=== PATIENT | male | born 1995 | race Caucasian/White ===

== ENCOUNTER 2024-05-09 15:55 | Emergency (ER) | payer OTHER, SELFPAY ==
[2024-05-09 16:28] VITALS: BP 121/63; PULSE 70; RESP 18; TEMP 37.1; O2SAT 99
--- NOTE | 2024-05-09 16:40 | ED.URI ---
HPI - URI/Sore Throat General Chief Complaint: Upper Respiratory Infection Stated Complaint: Sinus Infection Time Seen by Provider: 05/09/24 16:35 Source: patient, RN notes reviewed and old records reviewed Mode of arrival: ambulatory Limitations: no limitations History of Present Illness HPI Narrative: patient presents with 2 day history of runny nose, sore throat. He reports that he does get seasonal allergies, these feel about the same. He also reports though that his co-worker tested positive for COVID. Patient does not have any fever, chills, sweats. He is in no distress, including respiratory distress. He has not been taking anything for his symptoms. Voices no other concerns or complaints today Related Data Home Medications Medication Instructions Recorded Confirmed No Home Medications 05/09/24 05/09/24 Allergies Allergy/AdvReac Type Severity Reaction Status Date / Time fluoxetine AdvReac Unknown difficulty Verified 05/09/24 16:46 achieving organism Review of Systems Review of Systems: All systems reviewed & are unremarkable except as noted in HPI and below Constitutional: Constitutional: Reports no additional constitutional complaints ENT: Reports system reviewed and no additional complaints, except as documented, Reports as per HPI, Reports nasal discharge and Reports sore throat Cardiovascular: Cardiovascular: Reports no additional cardiovascular complaints Respiratory: Respiratory: Reports as per HPI, Reports no additional respiratory complaints and Reports cough Gastrointestinal: Gastrointestinal: Reports no additional gastrointestinal complaints [facility] Past Medical History Medical History Anxiety GERD (gastroesophageal reflux disease) Family History Family History Grandparent Hypertension Diabetes mellitus Father Family history of mental disorder Depression Mother Family history of mental disorder Depression Other Family history of multiple sclerosis Social History Social History Smoking status: Current every day smoker Alcohol intake: current Comments At the time of my signature, I reviewed and agree with the nursing past medical, surgical, social, and family history. There is no relevant family history pertinent to the patient complaint. Exam Const: General: cooperative, no acute distress, alert and awake Orientation/consciousness: oriented to person, oriented to place and oriented to time HENMT: Head: normal to inspection Ears: TM's normal bilaterally Face/Nose/Sinus: Nasal discharge present clear Mouth: Yes moist mucous membranes Throat: posterior oropharynx abnormal erythema Resp: Effort & Inspection: normal respiratory effort and able to speak in complete sentences Auscultation: clear to auscultation bilaterally, no crackles, no rales, no rhonchi and no wheezes Cardio: Palpation: normal PMI Rate: regular rate Rhythm: regular rhythm Heart sounds: S1 normal heart sound present and S2 normal heart sound present Neuro: General: oriented to person, oriented to place and oriented to time Cranial nerves: Yes CN's II-XII intact bilaterally Psych: Appearance: grossly normal Thought process: Normal thought process present Insight: Good insight present (Psych) Judgement: Good judgement present (Psych) Course Course Level of Care: Express Care Visit Vital Signs Vital signs: Vital Signs Temperature 98.8 F 05/09/24 16:28 Pulse Rate 70 05/09/24 16:28 Respiratory Rate 18 05/09/24 16:28 Blood Pressure 121/63 05/09/24 16:28 Pulse Oximetry 99 05/09/24 16:28 Oxygen Delivery Room Air 05/09/24 16:28 Temperature 98.8 F 05/09/24 16:28 Pulse Rate 70 05/09/24 16:28 Respiratory Rate 18 05/09/24 16:28 Blood Pressure 121/63 05/09/24 16:28 Pulse Oximetry 99
[2024-05-09 17:03] LABS: EDCOVIDSCREEN Positive (Negative)
== END 2024-05-09 17:09 | disposition home or self-care (01) ==
PROVIDERS: Emergency Provider Nurse Practitioner Family
DX: U07.1 COVID-19 (principal); K21.9 Gastro-esophageal reflux disease without esophagitis
CPT/HCPCS: 87426; 99212; G0463

== ENCOUNTER 2025-01-19 19:12 | Emergency (ER) | payer OTHER, SELFPAY ==
--- NOTE | ~2025-01-19 | CT_ITS ---
Clinical Indication: Pleural effusion, abdominal pain CT Scan of the Chest, Abdomen, and Pelvis with Contrast: Technique: Contiguous sections were acquired throughout the chest, abdomen, and pelvis after intraven ous administration of 100 cc of Omnipaque 350. Dose reduction technique was used on this scan by hansel saldana automated exposure control and iterative reconstruction technique. The dose-length product (DL P) was 371.88 mGy-cm. Findings: There is no evidence of any significant mediastinal, hilar or axillary lymphadenopathy. The mediastin al soft tissues appear normal. No aortic aneurysm or dissection. No central pulmonary embolus. There is no evidence of pleural or pericardial effusion. The lungs are clear. No pulmonary nodules or infiltrates are noted. The liver, spleen, pancreas, gallbladder, adrenals and kidneys are within normal limits. No evidence of aortic aneurysm. No lymphadenopathy. No bowel obstruction or bowel wall thickening. There is no evidence to suggest acute appendicitis. Urinary bladder is unremarkable. No pelvic mass seen. No ascites. Impression: No significant abnormalities seen. Reviewed, dictated and finalized at [facility]. Impression: No significant abnormalities seen.
--- NOTE | ~2025-01-19 | XR_ITS ---
EXAMINATION: XR chest 2V Exam Date/Time: 01/19/2025 20:04 CDT HISTORY: paliptations Comparison: 12/07/2015; 01/28/2013. RESULT: Lines, tubes, and devices: None. Lungs and pleura: Blunting of the left posterior costophrenic angle, with minimal adjacent subsegmen jimmy airspace disease. This may be secondary to small pleural effusion or chronic pleural blunting. Cardiomediastinal silhouette: Stable. Other: No acute osseous or upper abdominal finding. IMPRESSION: Possible trace left pleural effusion with adjacent subsegmental airspace disease. Reviewed, dictated and finalized at location [facility]. IMPRESSION: Possible trace left pleural effusion with adjacent subsegmental airspace disejan e.
--- NOTE | 2025-01-19 19:15 | ECG_ITS ---
Test Date: 2025-01-19 19:25:46 Measurements Intervals [place] Rate: 82 P: 61 AL: 142 QRS: 63 QRSD: 95 T: 53 QT: 357 QTc: 418 Interpretive Statements SINUS RHYTHM BASELINE ARTIFACT- I, II, III, AVR, AVL, AVF, V5 NORMAL ECG No previous ECG available for comparison Electronically Signed On 01-19-2025 19:27:57 CDT by José Cabrera D.O.
--- OUTSIDE RECORDS SUMMARY | 2025-01-19 19:15 | XMS_ITS | Continuity of Care Document ---
Author Organization [facility] Address [id number] [place] [phone] Phone Care Team Providers Care Brazing Machine Feeder Name Role Phone Davin Godinez MD Unavailable Unavailable Advance Directives Directive Yes / No Effective Date File Name No Information Encounters Encounter Description Practice Location Reason(s) For Visit Diagnoses Date Provider Providers Copied on Encounter [facility], [id number], [place], [place], [id number], [place] tel:[phone] [facility] No Information Herbert Jin. [address], [id number], [place]. tel:[phone] Family History Family Member Type Diagnosis Age At Onset No Information Payers Payer name Insurance type Covered republican ID Authoriza tion(s) No Information Social History Type Description Quantity Date Captured Comments Sex Male Smoking Status No Information Chief Complaint And Reason For Visit No Information Reason For Referral Reason For Referral No Information History Of Present Illness Encounter Date Complaint History Of Prese nt Illness No Information Functional Status Date Functional Assessmen t No Information Instructions Date Instruction Additional Infor mation No Information Assessments Type Assessment Date No Information Patient Care Teams Name Effective Dates (start - stop) Status Members No Information
[2025-01-19 19:20] VITALS: BP 137/92; PULSE 85; RESP 17; TEMP 36.6; O2SAT 100
[2025-01-19 19:36] LABS: Basophils Absolute Auto 0.1 K/mm3 (0.0-0.1); Basophils Percent Auto 0.7 % (0.2-1.2); Eosinophils Absolute Auto 0.4 K/mm3 (0-0.3); Eosinophils Percent Auto 5.1 % (0-4.4); Hematocrit 50.7 % (42.0-52.0); Hemoglobin 17.1 g/dL (14.0-18.0); Immature Granulocyte Absolute 0.01 K/mm3 (0.00-0.031); Immature Granulocyte Percent A 0.1 % (0-0.5); Lymphocytes Absolute Auto 2.25 K/mm3 (0.9-3.2); Lymphocytes Percent Auto 32.7 % (18.3-44.2); Mean Corpuscular HGB Conc 33.7 g/dl (32-36); Mean Corpuscular Hemoglobin 29.9 pg (26-34); Mean Corpuscular Volume 88.6 fl (80-100); Mean Platelet Volume 9.8 fl (7.4-10.4); Monocytes Absolute Auto 0.5 K/mm3 (0.1-0.6); Monocytes Percent Auto 7.8 % (2.6-8.5); Neutrophils Absolute Auto 3.7 K/mm3 (1.3-6.7); Neutrophils Percent Auto 53.6 % (45.5-73.1); Platelet Count Result 182 k/mm3 (150-375); Red Blood Count 5.72 M/mm3 (4.6-6.20); Red Cell Distribution Width 12.3 % (11.5-14.5); White Blood Count 6.9 K/mm3 (4.5-10.0)
[2025-01-19 19:48] LABS: INR 1.2; Prothrombin Time 14.6 Seconds (11.1-14.7)
[2025-01-19 19:49] LABS: Alanine Aminotransferase 30 U/L (6-50); Albumin Level 5.2 g/dL (3.5-5.1); Alkaline Phosphatase 70 U/L (38-126); Anion Gap 12 mmol/L (4-12); Aspartate Amino Transferase 32 U/L (17-59); Bilirubin,Total 0.8 mg/dL (0.2-1.3); Blood Urea Nitrogen 24 mg/dL (9-20); Calcium 9.8 mg/dL (8.4-10.2); Carbon Dioxide 23 mmol/L (22-30); Chloride 107 mmol/L (98-107); Estimated CRCL calculation 91 ml/min; Estimated Glomerular Filt Rate > 60; Glucose 98 mg/dL (65-110); Lipase 80 U/L (23-300); Partial Thromboplastin Time 27.5 Seconds (22.3-36.8); Potassium 3.8 mmol/L (3.4-5.0); Sodium 142 mmol/L (137-145)
[2025-01-19 20:00] LABS: Troponin I < 0.012 ng/mL (0.000-0.034)
--- OUTSIDE RECORDS SUMMARY | 2025-01-19 23:07 | XMS_ITS | Continuity of Care Document ---
Author Organization [facility] Address [id number] [place] [phone] Phone Care Team Providers Care Drywall Stripper Name Role Phone Davin Godinez MD Unavailable Unavailable Advance Directives Directive Yes / No Effective Date File Name No Information Encounters Encounter Description Practice Location Reason(s) For Visit Diagnoses Date Provider Providers Copied on Encounter [facility], [address], [place], [place], [id number], [place] tel:[phone] [facility] No Information Herbert Jin. [address], [id number], [place]. tel:[phone] Family History Family Member Type Diagnosis Age At Onset No Information Payers Payer name Insurance type Covered alliance party ID Authoriza tion(s) No Information Social History [...]
--- NOTE | 2025-01-19 23:08 | ECG_ITS ---
Test Date: 2025-01-19 23:54:14 Measurements Intervals [place] Rate: 61 P: 45 ND: 179 QRS: 42 QRSD: 88 T: 52 QT: 396 QTc: 400 Interpretive Statements SINUS RHYTHM NORMAL ECG Compared to ECG 01/19/2025 19:25:46 No significant changes Electronically Signed On 01-20-2025 06:11:30 CDT by José Cabrera D.O.
[2025-01-19 23:32] LABS: Troponin I < 0.012 ng/mL (0.000-0.034)
--- NOTE | 2025-01-20 00:15 | ED.ARRPALP ---
HPI - Arrhythmia/Palpitations General Chief Complaint: Arrhythmia/Palpitations Stated Complaint: Having palpitations x 3 days/SHOB/Diarrhea Time Seen by Provider: 01/19/25 22:51 Source: patient Mode of arrival: ambulatory Limitations: no limitations History of Present Illness HPI narrative: Patient presents with intermittent palpitations x3 days. He will have the sensation that his heart is pounding hard, occasionally feels like it stops for a beat. States that he can even see it pounding in his chest when he looks down. Associated with shortness of breath and also diarrhea x3 days, believes 6-8 nonbloody episodes in 24 hours. Causing low abdominal pain. History of having a colonoscopy and being diagnosed with IBS but that had been better after exercise and diet changes. No cardiac history. Right sided chest pain yesterday before bed, 4 quick episodes. History of marijuana use. No nausea/vomiting. No fevers but had cold sweats. YOSELIN was before coming to the ED, approxiamtely 4 pm. Not taking any medications for diarrhea. Increased urinary frquency but no urgency, hematuria, dysuria. Recently had a rash on his right knee and right elbow, resolved. No penile discharge. No leg swelling. Dry cough, no hemoptysis. No recent surgery/trauma. No history PE/DVT. Not on exogenous hormones. Cardiac risk factors HTN:0 (in fact, previous hypotension) HLD:0 DM:0 Obese:0 Smoker: no but nicotine pouches Personal history SC/TIA/CVA: 0 Fam Hx SC in first degree relative <65yo:0 Related Data Allergies Allergy/AdvReac Type Severity Reaction Status Date / Time Sulfa (Sulfonamide Allergy Unknown Verified 01/19/25 22:58 Antibiotics) fluoxetine AdvReac Unknown difficulty Verified 01/19/25 19:14 achieving organism PMFSH Past Medical History Medical History History of IBS Anxiety GERD (gastroesophageal reflux disease) Surgical History Surgical History History of colonoscopy Family History Family History Grandparent Hypertension Diabetes mellitus Father Family history of mental disorder Depression Mother Family history of mental disorder Depression Other Family history of multiple sclerosis Social History Social History Tobacco type: smokeless tobacco Additional smoking assessment comments: nicotine patch Alcohol intake: current Substance use: current Substance use type: marijuana Exam Narrative: GENERAL: Well-appearing, well-nourished, and in no acute distress. HEAD: Normocephalic, atraumatic. EYES: Non injected, non icteric ENT: Nares clear, no rhinorrhea or epistaxis. Gross auditory acuity intact. Moist mucous membranes NECK: Supple. No meningismus. CHEST: Speaking in full sentences. No respiratory distress. HEART: Regular rate and rhythm. . ABDOMEN: Soft, nondistended. No rigidity or guarding. Not peritoneal EXTREMITIES: Normal range of motion. No bilateral lower extremity edema. SKIN: Warm, dry, no rash. NEURO: No focal deficits. Alert and oriented. Answering questions. Following commands. Normal speech without aphasia or dysarthria. PSYCH: Normal mood and affect. Course Vital Signs Vital signs: Vital Signs Temperature 97.8 F 01/19/25 19:20 Pulse Rate 85 01/19/25 19:20 Respiratory Rate 17 01/19/25 19:20 Blood Pressure 137/92 H 01/19/25 19:20 Pulse Oximetry 100 01/19/25 19:20 Oxygen Delivery Room Air 01/19/25 19:20 Temperature 97.8 F 01/19/25 19:20 Pulse Rate 48 L 01/20/25 03:17 Respiratory Rate 12 01/20/25 03:17 Blood Pressure 137/72 01/20/25 03:17 Pulse Oximetry 98 01/20/25 03:17 Oxygen Delivery Room Air 01/20/25 03:16 MDM - Arrhythmia/Palpitations MDM Narrative Medical decision making narrative: Patient presents with intermittent palpitations, episodic chest pain, shortness of breath, and diarrhea. In the emergency department he is afebrile with acceptable vital signs elevated diastolic blood pressure though. PERC Rule Age greater than or equal to 50: 0 HR greater than or equal to 100:0 O2 sat room air <95%:0 Unilateral leg swellin Hemoptysis:0 Recent surgery or trauma less than 4 wks ago requiring tx with general anesthesia:0 Prior PE or DVT:0 Hormone use (OCP, HRT or estrogenic hormone use in M/F patients): 0 Will not pursue further work up given low pretest probability. HEART SCORE History 2 highly suspicious 1 moderately suspicious 0 slightly suspicious History score [address] depression/elevation not due to LBBB, LVH, or digoxin [address] depression but LBBB, LVH, nonspecific repolarization changes 0 normal ECG score 0 Age 2 >/= 65 1 45-64 0 <45 Age score 0 Risk factors (HTN, hypercholesterolemia, DM, obesity with BMI >30, current smoker or cessation </=3mo), positive fam hx with parent or sibling with CVD before age 65, atherosclerotic disease (prior SC, PCI/CABG, CVA/TIA, or peripheral arterial disease) 2 >/= 3 risk factors or history of atherosclerotic dz 1 - 1-2 risk factors 0 no known risk factors Risk factor score 0 versus 1 (nicotine pouches?) Initial Troponin 2 >3 times normal limit 1 1-3 times normal limit 0 less than or equal to normal limit Troponin score 0 Total HEART Score 0 versus 1. Repeat troponin normal. No electrolyte abnormalities. Questionable finding on chest x-ray so will proceed with CT imaging both of the chest as well as abdomen and pelvis. Urinalysis with some ketonuria but otherwise does not appear infected. UDS positive for cannabinoids. CT does not appreciate pleural effusion. Provided referrals for PCP and, if needed, cardiology as he may benefit from a Holter/event monitor if symptoms persist. Provided Rx for Bentyl. Otherwise stable for discharge. Differential Diagnosis Differential diagnosis: Likely palpitations, anxiety, sinus tachycardia, artial fibrillation, artial flutter, ventricular premature beats, supraventricular tachycardia, ventricular tachycardia, WPW and other (dehydration, symptomatic anemia, electrolyte abnormalities, psychogenic; nicotine side effect; marijuana side effect; potential caffeine intake; Legionnella/legionnaires) Lab Data Attestation: I reviewed the patient's lab results. 01/19/25 19:30 01/19/25 19:30 Labs: Lab Results 01/19/25 01/19/25 01/20/25 Range/Units 19:30 23:06 00:41 WBC 6.9 (4.5-10.0) K/mm3 RBC 5.72 (4.6-6.20) M/mm3 Hgb 17.1 (14.0-18.0) g/dL Hct 50.7 (42.0-52.0) % MCV 88.6 (80-100) fl MCH 29.9 (26-34) pg MCHC 33.7 (32-36) g/dl RDW 12.3 (11.5-14.5) % Plt Count 182 (150-375) k/mm3 MPV 9.8 (7.4-10.4) fl Immature Gran % (Auto) 0.1 (0-0.5) % Neut % (Auto) 53.6 (45.5-73.1) % Lymph % (Auto) 32.7 (18.3-44.2) % [place] % (Auto) 7.8 (2.6-8.5) % Eos % (Auto) 5.1 H (0-4.4) % Baso % (Auto) 0.7 (0.2-1.2) % Lymph # (Auto) 2.25 (0.9-3.2) K/mm3 [place] # (Auto) 0.5 (0.1-0.6) K/mm3 Eos # (Auto) 0.4 H (0-0.3) K/mm3 Baso # (Auto) 0.1 (0.0-0.1) K/mm3 Abs Immat Gran (auto) 0.01 (0.00-0.031) K/mm3 Absolute Neuts (auto) 3.7 (1.3-6.7) K/mm3 Absolute Nucleated RBC 0.000 (0.0-0.012) K/mm3 Nucleated RBC % 0.0 (0.0-0.2) % PT 14.6 (11.1-14.7) Seconds INR 1.2 APTT 27.5 (22.3-36.8) Seconds Sodium 142 (137-145) mmol/L Potassium 3.8 (3.4-5.0) mmol/L Chloride 107 (98-107) mmol/L Carbon Dioxide 23 (22-30) mmol/L Anion Gap 12 (4-12) mmol/L BUN 24 H (9-20) mg/dL Creatinine 1.09 (0.7-1.3) mg/dL Estim Creat Clear Calc 91 ml/min Estimated GFR > 60 (59 - ) Glucose 98 (65-110) mg/dL Calcium 9.8 (8.4-10.2) mg/dL Magnesium (1.6-2.3) mg/dL Total Bilirubin 0.8 (0.2-1.3) mg/dL AST 32 (17-59) U/L ALT 30 (6-50) U/L Alkaline Phosphatase 70 (38-126) U/L Troponin I < 0.012 < 0.012 (0.000-0.034) ng/mL Total Protein 8.0 (6.3-8.2) g/dL Albumin 5.2 H (3.5-5.1) g/dL Lipase 80 (23-300) U/L Urine Color Yellow (Yellow) Urine Appearance Clear (Clear) Urine pH 5.5 (5.0-9.0) Ur Specific [place] 1.033 (1.001-1.035) Urine Protein Negative (Negative) mg/dL Urine Glucose (UA) Negative (Negative) mg/dL Urine Ketones 2+ H (Negative) mg/dL Ur Blood (Man) Negative (Negative) Urine Nitrate Negative (Negative) Urine Bilirubin Negative (Negative) Urine Urobilinogen 1.0 (<2.0) mg/dL Leukocyte Esterase Rfl Negative (Negative) RUPAL/UL Urine Opiates Screen Negative (Negative) Urine Methadone Screen Negative (Negative) Ur Barbiturates Screen Negative (Negative) Ur Phencyclidine Scrn Negative (Negative) Ur Amphetamine Screen Negative (Negative) U Benzodiazepines Scrn Negative (Negative) Urine Cocaine Screen Negative (Negative) U Cannabinoids Screen Positive A (Negative) Influenza A (RT-PCR) Negative (Negative) Influenza B (RT-PCR) Negative (Negative) Ur L.pneumophila Ag Not detected RSV (RT-PCR) Negative (Negative) SARS-CoV-2 RNA (RT-PCR) Negative (Negative) 01/20/25 Range/Units 23:06 WBC (4.5-10.0) K/mm3 RBC (4.6-6.20) M/mm3 Hgb (14.0-18.0) g/dL Hct (42.0-52.0) % MCV (80-100) fl MCH (26-34) pg MCHC (32-36) g/dl RDW (11.5-14.5) % Plt Count (150-375) k/mm3 MPV (7.4-10.4) fl Immature Gran % (Auto) (0-0.5) % Neut % (Auto) (45.5-73.1) % Lymph % (Auto) (18.3-44.2) % [place] % (Auto) (2.6-8.5) % Eos % (Auto) (0-4.4) % Baso % (Auto) (0.2-1.2) % Lymph # (Auto) (0.9-3.2) K/mm3 [place] # (Auto) (0.1-0.6) K/mm3 Eos # (Auto) (0-0.3) K/mm3 Baso # (Auto) (0.0-0.1) K/mm3 Abs Immat Gran (auto) (0.00-0.031) K/mm3 Absolute Neuts (auto) (1.3-6.7) K/mm3 Absolute Nucleated RBC (0.0-0.012) K/mm3 Nucleated RBC % (0.0-0.2) % PT (11.1-14.7) Seconds INR APTT (22.3-36.8) Seconds Sodium (137-145) mmol/L Potassium (3.4-5.0) mmol/L Chloride (98-107) mmol/L Carbon Dioxide (22-30) mmol/L Anion Gap (4-12) mmol/L BUN (9-20) mg/dL Creatinine (0.7-1.3) mg/dL Estim Creat Clear Calc ml/min Estimated GFR (59 - ) Glucose (65-110) mg/dL Calcium (8.4-10.2) mg/dL Magnesium 2.0 (1.6-2.3) mg/dL Total Bilirubin (0.2-1.3) mg/dL AST (17-59) U/L ALT (6-50) U/L Alkaline Phosphatase (38-126) U/L Troponin I (0.000-0.034) ng/mL Total Protein (6.3-8.2) g/dL Albumin (3.5-5.1) g/dL Lipase (23-300) U/L Urine Color (Yellow) Urine Appearance (Clear) Urine pH (5.0-9.0) Ur Specific [place] (1.001-1.035) Urine Protein (Negative) mg/dL Urine Glucose (UA) (Negative) mg/dL Urine Ketones (Negative) mg/dL Ur Blood (Man) (Negative) Urine Nitrate (Negative) Urine Bilirubin (Negative) Urine Urobilinogen (<2.0) mg/dL Leukocyte Esterase Rfl (Negative) RUPAL/UL Urine Opiates Screen (Negative) Urine Methadone Screen (Negative) Ur Barbiturates Screen (Negative) Ur Phencyclidine Scrn (Negative) Ur Amphetamine Screen (Negative) U Benzodiazepines Scrn (Negative) Urine Cocaine Screen (Negative) U Cannabinoids Screen (Negative) Influenza A (RT-PCR) (Negative) Influenza B (RT-PCR) (Negative) Ur L.pneumophila Ag RSV (RT-PCR) (Negative) SARS-CoV-2 RNA (RT-PCR) (Negative) Imaging Data Radiologist's impression: Impressions Chest X-Ray 01/19/25 20:25 IMPRESSION: Possible trace left pleural effusion with adjacent subsegmental airspace disease. CT Chest/Abd/Pelvis Stat Rad: No pulmonary contusion or pneumothorax. No acute fractures. No traumatic visceral injury. No acute fractures. Concern for mild enterocolitis. ECG Data EKG #1: Attestation: I personally reviewed and interpreted this ECG as follows: ECG completion date: 01/19/25 ECG completion time: 19:25 Interpretation: Normal sinus rhythm at a rate of 82 beats per minute. NH interval 142. QRS 95. QT/QTC 357/395. Good R-wave progression across the precordial leads. No T-wave inversions. Normal axis. Normal ECG. EKG #2: Attestation: I personally reviewed and interpreted this ECG as follows: ECG completion date: 01/19/25 ECG completion time: 23:54 Interpretation: Normal sinus rhythm at a rate of 61 beats per minute. NH interval 179. QRS 88. QT/QTC 396/398. Good R-wave progression across the precordial leads. No T-wave inversions. Discharge Plan Discharge Clinical Impression: Palpitations, Diarrhea, Ketonuria, Marijuana use, Enterocolitis Patient Disposition: Home Condition: Stable Instructions: Antibiotic Form, Heart Palpitations (DC), Acute Diarrhea (ED), Abdominal Pain (ED), Colitis (ED), Enteritis (ED) Additional Instructions: Your workup did not reveal a cause of your palpitations. Your EKG (x2) and cardiac enzymes(x2) were normal. Recommend outpatient workup if this continues as you may benefit from a Holter/event monitor. Your PCP can help arrange this. If you do not have a PCP a doctor is listed below. Alternatively, the name of a wooden tank erector is also listed as a referral. In regards to your diarrhea, Your CT scan did show possible enterocolitis (enteritis/colitis) which is nonspecific for inflammation/infection of the small and large intestines, usually viral although you tested negative for COVID, influenza a, influenza B and RSV. Recommending rest and maintaining your hydration. You can supplement with Gatorade or Pedialyte if desired although your electrolytes are normal. Return to the Emergency Department immediately if the pain worsens, develops fever, persistent and uncontrolled vomiting, or for any new symptoms or concerns. You can use the Bentyl if abdominal pain/cramping persists. Avoid taking Immodium AD if possible as this needs to run its course. Patient Language: Haitian Prescriptions: New dicyclomine 10 mg capsule 10 mg PO BID PRN (Reason: abdominal pain) Qty: 10 0RF Follow-up/Referrals: Jaime Andrew MD [Physician] - (cardiology) PHYSICIAN,WASHING MACHINE LOADER AND PULLER [Primary Care Provider] - William Joya MD [Physician] - (family practice) Stand Alone Forms: Work/School Release IP Time of Disposition: 03:03
[2025-01-20] MEDS: DICYCLOMINE HCL 10 MG CAPSULE PO (00:40)
[2025-01-20 01:02] LABS: Add Urine Microscopic? NO; Appearance Urine Clear (Clear); Bilirubin Urine Negative (Negative); Blood Urine Negative (Negative); Color Urine Yellow (Yellow); Glucose Urine UA Negative (Negative); Ketones Urine 2+ mg/dL (Negative); Leukocyte Esterase Ur Negative LEU/UL (Negative); Nitrate Urine Negative (Negative); Protein Urine Negative (Negative); Specific Grav Ur 1.033 (1.001-1.035); pH Urine 5.5 (5.0-9.0)
[2025-01-20 01:18] LABS: Amphetamine Screen Urine Negative (Negative); Barbiturate Screen Urine Negative (Negative); Benzodiazepines Screen Urine Negative (Negative); Cannabinoid Screen Urine Positive (Negative); Cocaine Screen Urine Negative (Negative); Methadone Screen Urine Negative (Negative); Opiate Screen Urine Negative (Negative); Phencyclidine Screen Urine Negative (Negative)
[2025-01-20 01:34] LABS: Influenza A QL RT-PCR Negative (Negative); Influenza B QL RT-PCR Negative (Negative); RSV RNA, RT-PCR Negative (Negative); SARS-CoV-2 RNA PCR Negative (Negative)
[2025-01-20 03:09] VITALS: BP 137/72; PULSE 48; RESP 12; O2SAT 98
[2025-01-20 03:16] VITALS: PULSE 48; O2SAT 98
[2025-01-20 03:17] VITALS: BP 137/72; PULSE 48; RESP 12; O2SAT 98
[2025-01-22 18:14] LABS: Legionella pneumophila Ag Ur NOT DETECTED
== END 2025-01-20 03:18 | disposition home or self-care (01) ==
PROVIDERS: Emergency Medicine; Emergency Provider Student in an Organized Health Care Education/Training Program
DX: R00.2 Palpitations (principal); R82.4 Acetonuria; F12.90 Cannabis use, unspecified, uncomplicated; K52.9 Noninfective gastroenteritis and colitis, unspecified; F41.9 Anxiety disorder, unspecified; K21.9 Gastro-esophageal reflux disease without esophagitis
CPT/HCPCS: 36415; 71046; 71260; 74177; 80053; 80307; 81003; 83690; 83735; 84484; 85025; 85610; 85730; 87449; 87637; 93005; 99284; A9270; Q9967

== ENCOUNTER 2025-02-04 17:38 | Emergency (ER) | payer OTHER, SELFPAY ==
[2025-02-04 17:47] VITALS: BP 145/86; PULSE 68; RESP 18; TEMP 37.1; O2SAT 100
--- NOTE | 2025-02-04 17:48 | ED.MALEGU ---
HPI - Male Genitourinary General Chief complaint: Urogenital-Male Stated complaint: Uti Symptoms Source: patient and RN notes reviewed Mode of arrival: ambulatory Limitations: no limitations History of Present Illness HPI Narrative: Patient is a 29-year-old male who presents to the [facility] with complaints of dysuria, urinary frequency, and urinary urgency. He states that he feels as if he may be retaining urine at times because he needs to urinate again after just going. He states that his symptoms have been present for the last couple days. He denies known hematuria. States that he feels as if he has irritation to the tip of his penis. He denies penile discharge. Denies concern for STDs. Related Data Allergies Allergy/AdvReac Type Severity Reaction Status Date / Time Sulfa (Sulfonamide Allergy Mild Hives Verified 02/04/25 17:46 Antibiotics) fluoxetine AdvReac Unknown difficulty Verified 02/04/25 17:46 achieving orgasm Review of Systems Review of Systems: CONSTITUTIONAL: Denies fever, chills, or sweats. EYES: Denies visual changes, redness, or discharge. ENT: Denies otalgia and sore throat CARDIOVASCULAR: Denies chest pain, palpitations, or edema. RESPIRATORY: Denies cough or dyspnea. GASTROINTESTINAL: Denies abdominal pain, nausea, vomiting, or diarrhea. GENITOURINARY: Reports dysuria, urinary frequency, urinary urgency. Denies hematuria. SKIN: Denies rash or itching. MUSCULOSKELETAL: Denies back pain, joint pain, or myalgia. NEUROLOGIC: Denies headache, numbness, or weakness. Pertinent positives per HPI. [facility] Past Medical History Medical History History of IBS Anxiety GERD (gastroesophageal reflux disease) Surgical History Surgical History History of colonoscopy Family History Family History Grandparent Hypertension Diabetes mellitus Father Family history of mental disorder Depression Mother Family history of mental disorder Depression Other Family history of multiple sclerosis Social History Social History Tobacco type: smokeless tobacco Additional smoking assessment comments: nicotine patch Alcohol intake: current Substance use: current Substance use type: marijuana Comments At the time of my signature, I reviewed and agree with the nursing past medical, surgical, social, and family history. There is no relevant family history pertinent to the patient complaint. Exam Narrative: GENERAL: This is a well-nourished, well-developed patient, in no apparent distress. HEAD: normocephalic, atraumatic. EYES: Sclera clear/white. Vision is grossly intact. EARS: External ears normal. Hearing grossly intact. NOSE: External nose normal with no obvious nasal discharge, nares without redness, no rhinorrhea. THROAT: Mucous membranes moist, posterior pharynx clear. NECK: Neck supple, non-tender without lymphadenopathy, masses or thyromegaly. CARDIOVASCULAR: Regular rate and rhythm without murmurs, gallops, or rubs. RESPIRATORY: Clear to auscultation. Breath sounds equal bilaterally. No wheezes, rales, or rhonchi. GASTROINTESTINAL: Abdomen soft, non-tender, nondistended. Bowel sounds are active. No hepato-splenomegaly, or palpable masses. No guarding. SKIN: warm, intact with no suspicious lesions or rash, good texture and turgor. NEURO: awake, alert, and oriented to person, place and time. There were no obvious focal neurologic abnormalities. EXTREMITIES: No clubbing, cyanosis, or edema. No joint tenderness, effusion, or edema noted. BACK: Nontender without deformity or crepitance. No flank tenderness. Course Course Level of Care: Express Care Visit Vital Signs Vital signs: Vital Signs Temperature 98.8 F 02/04/25 17:47 Pulse Rate 68 02/04/25 17:47 Respiratory Rate 18 02/04/25 17:47 Blood Pressure 145/86 H 02/04/25 17:47 Pulse Oximetry 100 02/04/25 17:47 Oxygen Delivery Room Air 02/04/25 17:47 Temperature 98.8 F 02/04/25 17:47 Pulse Rate 68 02/04/25 17:47 Respiratory Rate 18 02/04/25 17:47 Blood Pressure 145/86 H 02/04/25 17:47 Pulse Oximetry 100 02/04/25 17:47 Oxygen Delivery Room Air 02/04/25 17:47 Reviewed MDM - Male Genitourinary MDM Narrative Medical decision making narrative: We will send a urine culture off to the lab; if the culture identifies an organism that the prescribed antibiotic will not treat, you will receive a phone call from an urgent care staff member and an appropriate antibiotic will be prescribed. -Your symptoms should begin to improve within a day of starting antibiotics. But you should finish all the antibiotic pills you get. Otherwise your infection might come back. -Also recommend: drink more fluid. It might help flush out germs, and it does no harm -Tylenol/ibuprofen as needed for pain -Follow-up with your primary care provider for urine recheck OR if your symptoms persist, change or worsen significantly before you can contact your personal physician then please, without delay, go to the emergency department for further evaluation. Differential Diagnosis Differential diagnosis: Likely urinary tract infection, urethritis, epididymitis and acute retention of urine Lab Data Attestation: I reviewed the patient's lab results. Labs: Lab Results 02/04/25 Range/Units 17:54 POC Urine Color Yellow POC Urine Clarity Clear POC Urine pH 6.5 POC Ur Specif [place] 1.010 POC Urine Protein Negative (Negative) POC Ur Glucose (UA) Negative (Negative) POC Urine Ketones Negative (Negative) POC Urine Blood Negative (Negative) POC Urine Nitrite Negative (Negative) POC Urine Bilirubin Negative (Negative) POC Urine Urobilinogen 0.2 POC U Leukocyte Esteras Negative (Negative) Critical Care Time Critical Care Time Critical Care Time: No Discharge Plan Discharge Clinical Impression: Urethritis Patient Disposition: Home Condition: Stable Instructions: Antibiotic Form, Urethritis (ED) Additional Instructions: We will send a urine culture off to the lab; if the culture identifies an organism that the prescribed antibiotic will not treat, you will receive a phone call from an urgent care staff member and an appropriate antibiotic will be prescribed. -Your symptoms should begin to improve within a day of starting antibiotics. But you should finish all the antibiotic pills you get. Otherwise your infection might come back. -Also recommend: drink more fluid. It might help flush out germs, and it does no harm -Tylenol/ibuprofen as needed for pain -Follow-up with your primary care provider for urine recheck OR if your symptoms persist, change or worsen significantly before you can contact your personal physician then please, without delay, go to the emergency department for further evaluation. Patient Language: Kosovan Prescriptions: New doxycycline monohydrate 100 mg capsule 100 mg PO BID 7 Days Qty: 14 0RF No Action dicyclomine 10 mg capsule 10 mg PO BID PRN (Reason: abdominal pain) Qty: 10 0RF Follow-up/Referrals: PHYSICIAN,MACHINING SUPERVISOR [Primary Care Provider] - Time of Disposition: 17:59
[2025-02-04 17:56] LABS: EDUAAPPEAR Clear; EDUABILI Negative (Negative); EDUABLOOD Negative (Negative); EDUACOLOR1 Yellow; EDUAGLUCOSE Negative (Negative); EDUAKETONE Negative (Negative); EDUALEUKO Negative (Negative); EDUANITRATE Negative (Negative); EDUAPH 6.5; EDUAPROTEIN Negative (Negative); EDUAUROBILI 0.2
== END 2025-02-04 18:02 | disposition home or self-care (01) ==
PROVIDERS: Emergency Provider Nurse Practitioner
DX: N34.2 Other urethritis (principal); F12.90 Cannabis use, unspecified, uncomplicated; K21.9 Gastro-esophageal reflux disease without esophagitis
CPT/HCPCS: 81003; 87086; 99213; G0463

== ENCOUNTER 2025-02-23 20:45 | Emergency (ER) | payer OTHER, SELFPAY ==
[2025-02-23 20:55] VITALS: BP 133/85; PULSE 78; RESP 14; TEMP 36.3; O2SAT 100
--- NOTE | 2025-02-23 21:09 | ED_ITS ---
HPI - Skin/Abscess/Foreign Bdy General Chief complaint: Skin/Abscess/Foreign Body <Analia Mulligan PA-C - Last Filed: 02/24/25 00:47> Stated complaint: bug bite <Analia Mulligan PA-C - Last Filed: 02/24/25 00:47> Time Seen by Provider: 02/23/25 20:54 <Analia Mulligan PA-C - Last Filed: 02/24/25 00:47> History of Present Illness HPI narrative: 29-year-old male presents emergency department with concerns for a bug bite to his right AC. Patient states this morning he woke up with a bump to the right antecubital fossa. A few hours ago he noticed streaking up his arm which prompted him to come to the ED. He denies injury or trauma. He did not see a bug bite him. He denies fever, nausea or vomiting. No denies history of MRSA, recent surgeries or hospitalizations. Denies IV drug use. Denies history of immunosuppression. Last Tdap unknown. <Analia Mulligan PA-C - Last Filed: 02/24/25 00:47> Related Data Allergies/Adverse reactions: Allergies Allergy/AdvReac Type Severity Reaction Status Date / Time Sulfa (Sulfonamide Allergy Mild Hives Verified 02/04/25 17:46 Antibiotics) fluoxetine AdvReac Unknown difficulty Verified 02/04/25 17:46 achieving orgasm <Analia Mulligan PA-C - Last Filed: 02/24/25 00:47> Review of Systems 2 Review of Systems: All systems reviewed & are unremarkable except as noted in HPI and below <Analia Mulligan PA-C - Last Filed: 02/24/25 00:47> PMFSH Past Medical History Medical History: Medical History History of IBS Anxiety GERD (gastroesophageal reflux disease) <Analia Mulligan PA-C - Last Filed: 02/24/25 00:47> Surgical History Surgical History: Surgical History History of colonoscopy <Analia Mulligan PA-C - Last Filed: 02/24/25 00:47> Family History Family History: Family History Grandparent Hypertension Diabetes mellitus Father Family history of mental disorder Depression Mother Family history of mental disorder Depression Other Family history of multiple sclerosis <Analia Mulligan PA-C - Last Filed: 02/24/25 00:47> Social History Social History: Social History Tobacco type: smokeless tobacco Additional smoking assessment comments: nicotine patch Alcohol intake: current Substance use: current Substance use type: marijuana <Analia Mulligan PA-C - Last Filed: 02/24/25 00:47> Exam 2 Narrative: GENERAL: Well-appearing, well-nourished, and in no acute distress. HEAD: Normocephalic, atraumatic. EYES: EOMI. ENT: Nares clear, no rhinorrhea or epistaxis. Mucous membranes moist. NECK: Supple. CHEST: Clear to auscultation. No respiratory distress. HEART: Regular rate and rhythm. No murmur heard. Normal peripheral pulses. EXTREMITIES: Normal range of motion. No edema. SKIN: Pustule to the right antecubital fossa with approximately surrounding erythema and warmth and a streak up the medial aspect of the humerus. No significant tenderness, no crepitus or vesicles. NEURO: No focal deficits. Alert and oriented x3 <Analia Mulligan PA-C - Last Filed: 02/24/25 00:47> Course MOTOR SCOOTER REPAIRER/PA Physician Supervision I agree with midlevel documentation; I performed the medical decision making component of this evaluation. Briefly, patient with concern for infection, after antibiotics here much improvement appearance of streaking, labs with normal white count but initially elevated creatinine, patient has no history of this, after fluid hydration creatinine now almost back to normal, with shared decision-making patient opts to go home with counseling to continue hydration and follow-up to Dr for repeat evaluation. <Nila Huynh MD - Last Filed: 02/24/25 01:24> Vital Signs Vital signs: Vital Signs Temperature 97.3 F L 02/23/25 20:55 Pulse Rate 78 02/23/25 20:55 Respiratory Rate 14 02/23/25 20:55 Blood Pressure 133/85 02/23/25 20:55 Pulse Oximetry 100 02/23/25 20:55 Oxygen Delivery Room Air 02/23/25 20:55 Temperature 97.3 F L 02/23/25 20:55 Pulse Rate 78 02/23/25 20:55 Respiratory Rate 14 02/23/25 20:55 Blood Pressure 133/85 02/23/25 20:55 Pulse Oximetry 100 02/23/25 20:55 Oxygen Delivery Room Air 02/23/25 20:55 <Analia Mulligan PA-C - Last Filed: 02/24/25 00:47> Vital Signs Temperature 97.3 F L 02/23/25 20:55 Pulse Rate 78 02/23/25 20:55 Respiratory Rate 14 02/23/25 20:55 Blood Pressure 133/85 02/23/25 20:55 Pulse Oximetry 100 02/23/25 20:55 Oxygen Delivery Room Air 02/23/25 20:55 Temperature 97.3 F L 02/23/25 20:55 Pulse Rate 78 02/23/25 20:55 Respiratory Rate 14 02/23/25 20:55 Blood Pressure 133/85 02/23/25 20:55 Pulse Oximetry 100 02/23/25 20:55 Oxygen Delivery Room Air 02/23/25 20:55 <Nila Huynh MD - Last Filed: 02/24/25 01:24> MDM - Skin/Abscess/Foreign Bdy MDM Narrative Medical decision making narrative: 29-year-old male with no significant past medical history presents to the emergency department for concerns for bug bite to his right antecubital fossa that he noticed this morning. See HPI for further history. Triage vitals are stable. Patient is afebrile and nontoxic appearing. Exam significant for a pustule to the right antecubital fossa with surrounding cellulitis and streaking of the right medial aspect of the humerus. No significant tenderness. No crepitus or vesicles. Pustule easily expressed the 18 gauge needle with small amount of purulence. CBC without leukocytosis or anemia. Chemistries with an VALERIE with a creatinine of 2.2, electrolytes are unremarkable. Patient admits to creating use which is what I suspect is source of VALERIE. He was given 2 L of fluids and repeat creatinine it did improve to 1.53. Lactic within normal limits. His Tdap was also updated given concerns for possible bug bite. Patient was given a dose of IV cefazolin. On re-evaluation the lymphangitis has significantly improved. Shared decision making regarding disposition. I did offer admission for continuation of IV antibiotics and hydration given VALERIE, however patient politely declined and states he will follow-up closely with his PCP this week for lab redraw. I advised him to discontinue the creatine. Will send him home on Keflex and doxycycline. I discussed strict ED return precautions. He is agreeable with the plan and verbalized understanding. Discharged in stable condition. <Analia Mulligan PA-C - Last Filed: 02/24/25 00:47> Lab Data Result diagrams: 02/23/25 21:17 02/23/25 23:43 <Analia Mulligan PA-C - Last Filed: 02/24/25 00:47> Labs: Lab Results 02/23/25 02/23/25 02/23/25 Range/Units 21:17 22:08 23:43 WBC 8.0 (4.5-10.0) K/mm3 RBC 4.95 (4.6-6.20) M/mm3 Hgb 14.9 (14.0-18.0) g/dL Hct 43.4 (42.0-52.0) % MCV 87.7 (80-100) fl MCH 30.1 (26-34) pg MCHC 34.3 (32-36) g/dl RDW 12.9 (11.5-14.5) % Plt Count 172 (150-375) k/mm3 MPV 9.9 (7.4-10.4) fl Immature Gran % (Auto) 0.1 (0-0.5) % Neut % (Auto) 59.0 (45.5-73.1) % Lymph % (Auto) 27.8 (18.3-44.2) % [place] % (Auto) 7.3 (2.6-8.5) % Eos % (Auto) 5.2 H (0-4.4) % Baso % (Auto) 0.6 (0.2-1.2) % Lymph # (Auto) 2.21 (0.9-3.2) K/mm3 [place] # (Auto) 0.6 (0.1-0.6) K/mm3 Eos # (Auto) 0.4 H (0-0.3) K/mm3 Baso # (Auto) 0.1 (0.0-0.1) K/mm3 Abs Immat Gran (auto) 0.01 (0.00-0.031) K/mm3 Absolute Neuts (auto) 4.7 (1.3-6.7) K/mm3 Absolute Nucleated RBC 0.000 (0.0-0.012) K/mm3 Nucleated RBC % 0.0 (0.0-0.2) % Sodium 140 139 (137-145) mmol/L Potassium 4.0 3.9 (3.4-5.0) mmol/L Chloride 105 107 (98-107) mmol/L Carbon Dioxide 25 25 (22-30) mmol/L Anion Gap 10 7 (4-12) mmol/L BUN 19 19 (9-20) mg/dL Creatinine 2.20 H 1.53 H (0.7-1.3) mg/dL Estim Creat Clear Calc 49 69 ml/min Estimated GFR 36 L 55 L (59 - ) Glucose 100 100 (65-110) mg/dL Lactic Acid 1.5 (0.7-2.0) mmol/L Calcium 9.2 8.3 L (8.4-10.2) mg/dL <Analia Mulligan PA-C - Last Filed: 02/24/25 00:47> Lab Results 02/23/25 02/23/25 02/23/25 Range/Units 21:17 22:08 23:43 WBC 8.0 (4.5-10.0) K/mm3 RBC 4.95 (4.6-6.20) M/mm3 Hgb 14.9 (14.0-18.0) g/dL Hct 43.4 (42.0-52.0) % MCV 87.7 (80-100) fl MCH 30.1 (26-34) pg MCHC 34.3 (32-36) g/dl RDW 12.9 (11.5-14.5) % Plt Count 172 (150-375) k/mm3 MPV 9.9 (7.4-10.4) fl Immature Gran % (Auto) 0.1 (0-0.5) % Neut % (Auto) 59.0 (45.5-73.1) % Lymph % (Auto) 27.8 (18.3-44.2) % [place] % (Auto) 7.3 (2.6-8.5) % Eos % (Auto) 5.2 H (0-4.4) % Baso % (Auto) 0.6 (0.2-1.2) % Lymph # (Auto) 2.21 (0.9-3.2) K/mm3 [place] # (Auto) 0.6 (0.1-0.6) K/mm3 Eos # (Auto) 0.4 H (0-0.3) K/mm3 Baso # (Auto) 0.1 (0.0-0.1) K/mm3 Abs Immat Gran (auto) 0.01 (0.00-0.031) K/mm3 Absolute Neuts (auto) 4.7 (1.3-6.7) K/mm3 Absolute Nucleated RBC 0.000 (0.0-0.012) K/mm3 Nucleated RBC % 0.0 (0.0-0.2) % Sodium 140 139 (137-145) mmol/L Potassium 4.0 3.9 (3.4-5.0) mmol/L Chloride 105 107 (98-107) mmol/L Carbon Dioxide 25 25 (22-30) mmol/L Anion Gap 10 7 (4-12) mmol/L BUN 19 19 (9-20) mg/dL Creatinine 2.20 H 1.53 H (0.7-1.3) mg/dL Estim Creat Clear Calc 49 69 ml/min Estimated GFR 36 L 55 L (59 - ) Glucose 100 100 (65-110) mg/dL Lactic Acid 1.5 (0.7-2.0) mmol/L Calcium 9.2 8.3 L (8.4-10.2) mg/dL <Nila Huynh MD - Last Filed: 02/24/25 01:24> Discharge Plan Discharge Clinical Impression: Cellulitis with lymphangitis, VALERIE (acute kidney injury) <Analia Mulligan PA-C - Last Filed: 02/24/25 00:47> Patient Disposition: Home <KALEY Khalil Last Filed: 02/24/25 00:47> Condition: Stable <KALEY Khalil Filed: 02/24/25 00:47> Instructions: Antibiotic Form, Acute Kidney Injury (DC), Cellulitis (ED) <KALEY Khalil Last Filed: 02/24/25 00:47> Additional Instructions: Please take the antibiotics as directed. Stop taking the creatine as this elevated your creatinine (kidney function). Please make sure to drink plenty of fluids. Follow-up closely with primary care provider have your labs redrawn this week to ensure your kidney function is improving. Return to the emergency department if you develop redness spreading outside the marked area, fever, nausea or vomiting, or other concerning symptoms. <KALEY Khalil Last Filed: 02/24/25 00:47> Patient Language: Slovenian <KALEY Khalil Last Filed: 02/24/25 00:47> Prescriptions: New doxycycline monohydrate 100 mg capsule 100 mg PO BID Qty: 14 0RF cephalexin 500 mg capsule 500 mg PO Q8H 7 Days Qty: 21 0RF No Action doxycycline monohydrate 100 mg capsule 100 mg PO BID 7 Days Qty: 14 0RF dicyclomine 10 mg capsule 10 mg PO BID PRN (Reason: abdominal pain) Qty: 10 0RF <KALEY Khalil Last Filed: 02/24/25 00:47> Follow-up/Referrals: Vinicius Haro MD [Primary Care Provider] - PHYSICIAN,RAILROAD POLICE OFFICER [Non-Staff] - <KALEY Khalil Last Filed: 02/24/25 00:47>
[2025-02-23] MEDS: ceFAZolin 1 GM/NS 50 ML 1 GM/50 ML BAG IVPB (21:21)
[2025-02-23 21:22] LABS: Hematocrit 43.4 % (42.0-52.0); Hemoglobin 14.9 g/dL (14.0-18.0); Immature Granulocyte Percent A 0.1 % (0-0.5); Lymphocytes Absolute Auto 2.21 K/mm3 (0.9-3.2); Mean Corpuscular HGB Conc 34.3 g/dl (32-36); Mean Corpuscular Hemoglobin 30.1 pg (26-34); Mean Corpuscular Volume 87.7 fl (80-100); Nucleated Red Blood Cells Absolute Auto 0.000 K/mm3 (0.0-0.012); Nucleated Red Blood Cells Perc 0.0 % (0.0-0.2); Platelet Count Result 172 k/mm3 (150-375); Red Blood Count 4.95 M/mm3 (4.6-6.20); White Blood Count 8.0 K/mm3 (4.5-10.0)
[2025-02-23 21:35] LABS: Anion Gap 10 mmol/L (4-12); Blood Urea Nitrogen 19 mg/dL (9-20); Calcium 9.2 mg/dL (8.4-10.2); Carbon Dioxide 25 mmol/L (22-30); Chloride 105 mmol/L (98-107); Glucose 100 mg/dL (65-110); Potassium 4.0 mmol/L (3.4-5.0); Sodium 140 mmol/L (137-145)
[2025-02-23 21:41] LABS: Estimated CRCL calculation 49 ml/min; Estimated Glomerular Filt Rate 36
[2025-02-23] MEDS: SODIUM CHLORIDE 0.9% IV 1,000 ML 999 ML IV CONT ×2 (21:52→22:09)
[2025-02-23] MEDS: TETANUS,DIPHTHERIA,AC PERTUSSIS ADULT (0.5 ML) BOOSTRIX IM (22:09)
--- NOTE | 2025-02-23 23:16 | PC.NURSE ---
report from arlene ferrara
[2025-02-23 23:57] LABS: Anion Gap 7 mmol/L (4-12); Blood Urea Nitrogen 19 mg/dL (9-20); Calcium 8.3 mg/dL (8.4-10.2); Carbon Dioxide 25 mmol/L (22-30); Chloride 107 mmol/L (98-107); Estimated CRCL calculation 69 ml/min; Estimated Glomerular Filt Rate 55; Glucose 100 mg/dL (65-110); Potassium 3.9 mmol/L (3.4-5.0); Sodium 139 mmol/L (137-145)
[2025-02-24 01:27] VITALS: BP 117/73; PULSE 76; RESP 16; TEMP 36.6; O2SAT 98
== END 2025-02-24 01:28 | disposition home or self-care (01) ==
PROVIDERS: Emergency Provider Physician Assistant; PCP Emergency Medicine
DX: L03.113 Cellulitis of right upper limb (principal); N17.9 Acute kidney failure, unspecified; F17.290 Nicotine dependence, other tobacco product, uncomplicated; F12.90 Cannabis use, unspecified, uncomplicated; Z23 Encounter for immunization
CPT/HCPCS: 36415; 80048; 83605; 85025; 90471; 90715; 96365; 96366; 99284; J0690; J7030

== ENCOUNTER 2025-04-30 13:32 | Outpatient (CLI) | payer OTHER, SELFPAY ==
--- NOTE | ~2025-04-30 | MR_ITS ---
EXAMINATION: MR brain/brain stem wo/w con DATE: 04/30/2025 14:05 INDICATION: Idiopathic neuropathy. Right eye visual disturbance. Left lower limb burning and tingling. TECHNIQUE: Magnetic resonance imaging (MRI) of the brain and brainstem was performed without and with 15 mL MultiHance intravenous contrast. COMPARISON: Brain MRI 03/01/2017, head CT 12/26/2017 FINDINGS: There is no intracranial hemorrhage, acute infarction, or abnormal intracranial mass lesion. The ventricles are normal in size. There is mild mucosal thickening in the paranasal sinuses. The orbits are normal. The mastoid air cells are normal. IMPRESSION: 1. Normal brain. Reviewed, dictated and finalized at location E. IMPRESSION: 1. Normal brain.
== END 2025-04-30 13:33 | disposition home or self-care (01) ==
LOC: MICIMG 13:33
PROVIDERS: PCP Emergency Medicine; Visit Provider Emergency Medicine
DX: G60.9 Hereditary and idiopathic neuropathy, unspecified (principal)
CPT/HCPCS: 70553; A9577